=== PATIENT | female | born 1980 | race African-American/Black ===

== ENCOUNTER 2016-11-04 14:32 | Emergency (ER) | payer OTHER ==
[~2016-11-04] VITALS: Ht 172.7 cm; Wt 97.2 kg
[2016-11-04 14:45] VITALS: BP 120/71
== END 2016-11-04 15:24 | disposition home or self-care (01) ==
LOC: ED 14:32
DX: S29.012A Strain of muscle and tendon of back wall of thorax, initial encounter (principal); F17.200 Nicotine dependence, unspecified, uncomplicated; K21.9 Gastro-esophageal reflux disease without esophagitis; Z71.6 Tobacco abuse counseling; Z88.0 Allergy status to penicillin; V49.9XXA Car occupant (driver) (passenger) injured in unspecified traffic accident, initial encounter; Y93.89 Activity, other specified; Y99.8 Other external cause status; Y92.89 Other specified places as the place of occurrence of the external cause
CPT/HCPCS: 99406

== ENCOUNTER 2017-05-01 16:57 | Emergency (ER) | payer OTHER ==
[2017-05-01 20:20] LABS: BASOPHIL % 0.5 % (0-2)
[2017-05-01 20:27] LABS: PLATELET COUNT 150 x10^3mcL (130-400); RED CELL DISTRIBUTION WIDTH 15.9 % (11.5-14.5)
[2017-05-01 20:47] LABS: AMPHETAMINE QUAL UR NONE DETECTED (NEG <=1000)
[2017-05-01 21:32] VITALS: BP 111/67
== END 2017-05-01 21:32 | disposition home or self-care (01) ==
LOC: ED 16:57
PROVIDERS: Emergency Medicine
DX: O20.0 Threatened abortion (principal); K21.9 Gastro-esophageal reflux disease without esophagitis; Z3A.08 8 weeks gestation of pregnancy; Z88.0 Allergy status to penicillin
CPT/HCPCS: 36415

== ENCOUNTER 2018-01-02 14:01 | Emergency (ER) | payer MEDICAID ==
[~2018-01-02] VITALS: Ht 172.7 cm; Wt 96.6 kg
[2018-01-02 14:11] VITALS: Ht 172.7 cm; Wt 96.6 kg
[2018-01-02 15:36] LABS: BASOPHIL % 0.4 % (0-2); PLATELET COUNT 162 x10^3mcL (130-400)
[2018-01-02 15:45] LABS: RED CELL DISTRIBUTION WIDTH 16.2 % (11.5-14.5)
[2018-01-02 15:48] LABS: CALCIUM 9.1 mg/dL (8.5-10.1); CARBON DIOXIDE 28.2 mmol/L (21-32); CREATININE SERUM 1.1 mg/dL (0.6-1.0); POTASSIUM SERUM 3.8 mmol/L (3.5-5.1)
[2018-01-02 17:20] VITALS: BP 106/70
== END 2018-01-02 17:20 | disposition home or self-care (01) ==
LOC: ED 14:01
PROVIDERS: Emergency Medicine
DX: R07.89 Other chest pain (principal); K21.9 Gastro-esophageal reflux disease without esophagitis; F17.210 Nicotine dependence, cigarettes, uncomplicated; Z98.51 Tubal ligation status; Z88.0 Allergy status to penicillin; Z71.6 Tobacco abuse counseling
CPT/HCPCS: 36415; 99406; J1885; Q0092

== ENCOUNTER 2018-01-22 10:46 | Emergency (ER) | payer MEDICAID ==
[~2018-01-22] VITALS: Ht 172.7 cm; Wt 96.2 kg
[2018-01-22 10:56] VITALS: Ht 172.7 cm; Wt 96.2 kg
[2018-01-22 11:59] LABS: BASOPHIL % 0.3 % (0-2); PLATELET COUNT 157 x10^3mcL (130-400)
[2018-01-22 12:12] LABS: CALCIUM 8.4 mg/dL (8.5-10.1); CARBON DIOXIDE 28.2 mmol/L (21-32); CHLORIDE SERUM 108 mmol/L (98-107); CREATININE SERUM 0.9 mg/dL (0.6-1.0); GFR1 > 60 mL/min; GLUCOSE SERUM 104 mg/dL (74-106); POTASSIUM SERUM 3.9 mmol/L (3.5-5.1); SODIUM SERUM 141 mmol/L (136-145)
[2018-01-22 12:35] LABS: RED CELL DISTRIBUTION WIDTH 16.1 % (11.5-14.5)
[2018-01-22 12:46] VITALS: BP 112/64
== END 2018-01-22 12:46 | disposition home or self-care (01) ==
LOC: ED 10:46
PROVIDERS: Emergency Medicine
DX: R51 Headache (principal); M79.605 Pain in left leg; M79.604 Pain in right leg; J02.9 Acute pharyngitis, unspecified
CPT/HCPCS: 36415